=== PATIENT | female | born 1935 | race Hispanic/Latino ===

== ENCOUNTER 2017-09-02 19:47 | Emergency (ER) | payer MEDICARE, OTHER ==
[2017-09-02] MEDS ORDERED: LIDOCAINE HCL 1% 20 ML VIAL ONE (20:27)
[2017-09-02] MEDS ORDERED: MORPHINE SULFATE 4 MG/1ML SYG ONE (20:28)
[2017-09-07] MEDS ORDERED: TRAM50TA4 PO (15:48)
[2017-09-07] MEDS ORDERED: METF500T7 PO (15:48)
[2017-09-07] MEDS ORDERED: LISI-613 PO (15:48)
[2017-09-07] MEDS ORDERED: LEVO100T6 PO (15:48)
[2017-09-07] MEDS ORDERED: METO-391 PO (15:48)
== END 2017-09-02 22:34 | disposition home or self-care (01) ==
LOC: EDH 19:47
DX: S52.502A Unspecified fracture of the lower end of left radius, initial encounter for closed fracture (principal); E11.9 Type 2 diabetes mellitus without complications; I10 Essential (primary) hypertension; W18.39XA Other fall on same level, initial encounter; Y93.89 Activity, other specified; Y92.481 Parking lot as the place of occurrence of the external cause; Y99.8 Other external cause status
CPT/HCPCS: 25605; 73070; 73090; 73100 ×2; 96374; 99284; J2270

== ENCOUNTER 2017-09-10 06:22 | Day surgery (SDC) | payer OTHER ==
[2017-09-07 15:20] LABS: BASOPHILS % (AUTO) 1.1 % (0.0-5.0); EOSINOPHILS % (AUTO) 2.5 % (0.0-8.0); HEMATOCRIT 37.2 % (36-48); MEAN CORPUSCULAR HEMOGLOBIN 32.1 pg (27.0-33.0); MEAN CORPUSCULAR HGB CONC 34.8 g/dL (32.0-36.0); MEAN CORPUSCULAR VOLUME 92.3 fL (79-99); MONOCYTES % (AUTO) 7.2 % (3.0-13.0); NEUTROPHILS % (AUTO) 57.2 % (40.0-77.0); PLATELET COUNT (AUTO) 229 K/uL (130-400); RED BLOOD CELL COUNT(AUTO) 4.03 MIL/uL (4.00-5.50); RED CELL DISTRIBUTION WIDTH 12.8 % (11.0-15.5); WHITE BLOOD COUNT (AUTO) 7.7 K/uL (4.8-10.8)
[2017-09-07 15:28] VITALS: BP 143/79
[2017-09-07 15:28] LABS: POTASSIUM 4.2 mmol/L (3.5-5.1)
[2017-09-10] VITALS (13 sets, daily range): BP systolic 119–156; BP diastolic 50–82
[~2017-09-10] VITALS: Ht 152.4 cm; Wt 71.7 kg
[~2017-09-10 06:22] MED LIST: CEFAZOLIN SODIUM 1 GM VIAL IVP SCH; LEVO100T6 PO; LISI-613 PO; METF500T7 PO; METO-391 PO; TRAM50TA4 PO
[2017-09-10] MEDS ORDERED: FENTANYL CITRATE PF 50 MCG/1 ML 2ML VIAL ONE (06:28)
[2017-09-10] MEDS ORDERED: ONDANSETRON HCL 4 MG/2 ML VIAL ONE (06:28)
[2017-09-10] MEDS ORDERED: GLYCOPYRROLATE 0.2 MG/ML 5 ML VIAL ONE (06:28)
[2017-09-10] MEDS ORDERED: LIDOCAINE PF 2% 5ML ABBOJECT ONE (06:28)
[2017-09-10] MEDS ORDERED: PROPOFOL 10 MG/ML 20ML VIAL IV ONE (06:28)
[2017-09-10] MEDS ORDERED: DEXAMETHASONE SOD PHOSPHATE 10MG/ML 1ML VIAL ONE ×2 (06:28→08:43)
[2017-09-10] MEDS ORDERED: NEOSTIGMINE 5MG/5ML SYR IV ONE (06:28)
[2017-09-10] MEDS ORDERED: MIDAZOLAM HCL 1 MG/ML 2ML VIAL ONE (06:29)
[2017-09-10] MEDS ORDERED: SODIUM CHLORIDE 0.9% 1000ML 1,000 ML IV ONE (06:40)
[2017-09-10] MEDS ORDERED: ROPIVACAINE 0.5% 5MG/ML 30ML IJ ONE (06:53)
[2017-09-10] MEDS: CEFAZOLIN SODIUM 1 GM VIAL ONE ×2 (07:02→08:21)
[2017-09-10] MEDS ORDERED: ACET-2743 PO (07:03)
[2017-09-10] MEDS ORDERED: CEFAZOLIN SODIUM 1 GM VIAL ONE (08:30)
[2017-09-10] MEDS ORDERED: EPHEDRINE SULFATE 50 MG/ML AMPULE ONE (08:33)
[2017-09-10] MEDS ORDERED: ROCURONIUM BROMIDE 10MG/1ML 5ML VL ONE (08:42)
[2017-09-10] MEDS ORDERED: METOCLOPRAMIDE 10 MG/2 ML VIAL ONE (08:43)
[2017-09-10] MEDS ORDERED: SUCCINYLCHOLINE CHLORIDE 20 MG/ML 10 ML VIAL ONE (08:43)
[2017-09-10] MEDS ORDERED: ONDANSETRON HCL MDV 20ML 2 MG/ML VIAL ONE (08:43)
[2017-09-10] MEDS ORDERED: LIDOCAINE HCL 4% LTA SOL 4 ML VIAL ONE (08:44)
[2017-09-10] MEDS ORDERED: LIDOCAINE HCL 2% JELLY 5 ML ONE (08:44)
[2017-09-10] MEDS ORDERED: CEPH500B PO (08:55)
[2017-09-10] MEDS ORDERED: MEPERIDINE-PF 50 MG/ML SYG ONE (09:07)
[2017-09-10] MEDS ORDERED: MORPHINE SULFATE 4 MG/1ML SYG ONE (09:23)
[2017-09-10] MEDS ORDERED: TRAM50TA4 PO (10:31)
== END 2017-09-10 10:50 | disposition home or self-care (01) ==
LOC: DAH 06:22
PROVIDERS: ATTEND Orthopaedic Surgery
DX: S52.552A Other extraarticular fracture of lower end of left radius, initial encounter for closed fracture (principal); W18.30XA Fall on same level, unspecified, initial encounter; Y93.9 Activity, unspecified; Y92.22 Religious institution as the place of occurrence of the external cause; Y99.9 Unspecified external cause status; I12.9 Hypertensive chronic kidney disease with stage 1 through stage 4 chronic kidney disease, or unspecified chronic kidney disease; E11.22 Type 2 diabetes mellitus with diabetic chronic kidney disease; N18.3 Chronic kidney disease, stage 3 (moderate); E72.11 Homocystinuria; Z79.84 Long term (current) use of oral hypoglycemic drugs; Z79.899 Other long term (current) drug therapy; Z80.9 Family history of malignant neoplasm, unspecified; J44.9 Chronic obstructive pulmonary disease, unspecified; Z88.8 Allergy status to other drugs, medicaments and biological substances
CPT/HCPCS: 25606; 36415; 76000; 80048; 82948 ×2; 85025; 93005; A4218; A4606; A4649; A6223; C1713; J0330; J0690 ×2; J1100 ×2; J2001; J2175; J2250; J2270; J2405; J2704; J2710; J2765; J2795; J3010; J3490 ×3; J7030; Q4051

== ENCOUNTER → 2018-10-01 | Outpatient (CLI) | payer OTHER ==
[~2018-10-01] MED LIST changes: +ACET-2743 PO; -CEFAZOLIN SODIUM 1 GM VIAL IVP SCH; +CEPH500B PO
== END | disposition home or self-care (01) ==
LOC: OIH 13:34
PROVIDERS: ATTEND Family Medicine
DX: M17.12 Unilateral primary osteoarthritis, left knee (principal); M79.89 Other specified soft tissue disorders; M85.862 Other specified disorders of bone density and structure, left lower leg
CPT/HCPCS: 73562

== ENCOUNTER → 2019-01-17 | Outpatient (CLI) | payer OTHER ==
[~2019-01-17] MED LIST changes: +METF500T20 PO; -METF500T7 PO; +REGADENOSON 0.4 MG/5 ML PF SYG IVP SCH
== END | disposition home or self-care (01) ==
LOC: RAH 08:30
PROVIDERS: ATTEND Family Medicine
DX: I20.9 Angina pectoris, unspecified (principal)
CPT/HCPCS: 78452; 93017; 96374; A9500 ×2; J2785